=== PATIENT | male | born 1955 | race Caucasian/White ===

== ENCOUNTER 2018-10-08 08:32 | Inpatient (IN) ==
[2018-10-08] MEDS ORDERED: CeFAZolin Syr 2,000MG/20 ML 2,000 MG/20 ML SYRINGE IVPB ONE (08:56)
[2018-10-08] MEDS ORDERED: Ringers Solution, Lactated 1,000 ML IVC SCH (09:00)
--- NOTE | 2018-10-08 09:10 | Anesthesia Evaluation PreOp ---
Date of Encounter: 10/08/18 Time of Encounter: 09:15 - Past History Planned Operation: Laparoscopic Left Radical Nephrectomy Cardiac History: [place] (1988), HTN, Hyperlipidemia, Cardiac Stent (stent x 1 in 1999) Pulmonary History: Denies Any Significant HX, Snore [employer] History: Denies Any Significant HX Other Medical History: Denies Any Significant HX Anesthesia History: No Prior Anesthetic Complications, Past Anesthesia Alcohol Use: none Drug use: none Medications and Allergies Aspirin 325 mg PO DAILY 10/08/18 [History] Atenolol [Tenormin] 50 mg PO DAILY 10/08/18 [History] Atorvastatin [Lipitor] 40 mg PO HS 10/08/18 [History] Lisinopril [Zestril] 5 mg PO DAILY 10/08/18 [History] Allergy/AdvReac Type Severity Reaction Status Date / Time No Known Allergies Allergy Unverified 10/02/18 13:54 - Meds/Allergy Pre-op Review Medications Reviewed: Yes Allergies Reviewed: Yes Beta Blockers on Current Med List: Yes If Beta Blockers taken, Date/Time (Last Dose taken): 10/08/2018 at 0700 Anesthesia Results - Labs Laboratory Tests 08/07/17 10/02/18 10/02/18 17:41 14:00 14:00 WBC 7.2 Hgb 18.0 H Hct 52.8 H Plt Count 197 Sodium 137 Potassium 3.8 BUN 25 H Creatinine 1.08 - Imaging EKG: report reviewed (10/02/2018 SINUS BRADYCARDIA Inferior T changes, consider ischemia, correlate clinically) Anesthesia Exam O2 Sat Height 1.91 m Weight 103.419 kg O2 Sat by Pulse Oximetry 97 Vital Signs Temp Pulse Resp BP Pulse Ox 98.2 F 53 18 151/82 97 10/08/18 08:55 10/08/18 08:55 10/08/18 08:55 10/08/18 08:55 10/08/18 08:55 Height: 6'3'' Weight: 228 lbs NPO (# of Hours): 8 Pain Scale: 0 Pain Scale Used: Numeric (1 - 10) - HEENT Pupil (Motor): EOMI Mallampati: II Teeth: Normal Oral Opening: Greater than 3 - [employer] LOC: Oriented [employer] Motor: Normal RUE, Normal LUE, Normal RLE, Normal LLE, Normal Face [employer] Sensory: Normal: RUE, LUE, RLE, LLE, Face - Cardiac Rhythm: Regular Murmur: None - Pulmonary Breath Sounds: bilateral Clear Respiratory Effort: Symmetrical Anesthesia Assess/Plan ASA Score: 3 Level of consciousness: Cooperative, Oriented, Tranquil Anesthetic Plan: General Monitoring Plan: Standard Monitors Recovery Plan: PACU
[2018-10-08] MEDS ORDERED: Ondansetron 4 MG/2 ML VIAL IVP ONE (09:35)
[2018-10-08] MEDS ORDERED: *HR* HYDROmorphone (PF) 1 MG/ML SYRINGE IVP PRN (09:35)
[2018-10-08] MEDS ORDERED: *HR* OxyCODONE Immed Rel 5 MG TABLET PO PRN ×2 (09:35→16:21)
--- NOTE | 2018-10-08 09:59 | History & Physical Report ---
Date of Encounter: 10/08/18 Time of Encounter: 09:58 24 Hour HP Update - Instructions Instructions: If the History and Physical is less than 30 days old and was completed prior to A.M. admission and or procedure and has NOT been updated on calendar day of procedure please complete this update prior to performing procedure. - Update Patient reports changes in Medical Condition: No Changes in examination, assessment, or condition: No Changes in Medication: No Preop tests/diagnostics Reviewed: Yes Surgery Remains Indicated: Yes Consent for Planned Operative Procedure(s) Verified: Yes - Pre-Operative Checklist Preoperative Checklist Indicated: Yes Prophylactic Antibiotic Ordered: Yes Home Medications Include Beta Esteban: No Beta Esteban Taken Today (Day of Surgery): No Beta Esteban Taken Yesterday (Day Prior to Surgery): No Is VTE Prophylaxis Indicated?: Yes
[2018-10-08] MEDS ORDERED: *HR* Midazolam HCl 2 MG/2 ML VIAL ONE (10:26)
[2018-10-08] MEDS ORDERED: *HR* FentaNYL (PF) 100 MCG/2 ML VIAL ONE ×2 (10:26→14:40)
[2018-10-08] MEDS ORDERED: *HR* Propofol 200 MG/20 ML VIAL IVP ONE (10:26)
[2018-10-08] MEDS ORDERED: Heparin 1,000 UNITS/500 mL 500 ML ONE (10:39)
[2018-10-08] MEDS ORDERED: *HR* PHENYLEPHRINE 1,000 MCG/10 ML SYRINGE IVP ONE ×2 (10:43→12:37)
[2018-10-08] MEDS ORDERED: Ondansetron 4 MG/2 ML VIAL ONE (10:57)
[2018-10-08] MEDS ORDERED: Lidocaine -MPF 2% 2 ML VIAL ONE ×2 (10:57→13:38)
[2018-10-08] MEDS ORDERED: Dexamethasone 4 MG/ML VIAL ONE (10:57)
[2018-10-08] MEDS ORDERED: Bupivacaine-MPF 0.25% 10 ML VIAL ONE (11:53)
[2018-10-08] MEDS ORDERED: EPHEDrine 50 MG/ML VIAL ONE (12:38)
[2018-10-08] MEDS ORDERED: *HR* HYDROMORPHONE 2 MG/ML VIAL ONE (13:00)
[2018-10-08] MEDS ORDERED: *HR* Rocuronium Bromide 50 MG/5 ML VIAL ONE (13:12)
[2018-10-08] MEDS ORDERED: Neostigmine Methylsulfate 3 MG/3 ML SYRINGE ONE (14:26)
--- NOTE | 2018-10-08 15:42 | Operative Note ---
Date of procedure: 10/08/18 Pre-op diagnosis: 9 cm left renal mass Post-op diagnosis: same Procedure: left hand assist laparoscopic nephrectomy Anesthesia: GETA Surgeon: Mati Cervantes Was there an assistant surveyor present: Yes Business Systems Administrator: Milvia Rendon Estimated blood loss (cc): 250 Specimen: left kidney Condition: stable Disposition: PACU Procedure in Detail: Patient was taken back to the operating room positioned supine on the operating table. Anesthesia was applied without complication. Catheter was placed to return of clear urine. He is placed in a modified flank position. Gel rolls were used to support the patient's back and buttocks. Appropriate cushioning was used for patient safety. He was taped in place and safety belt was applied. Once he was prepped and draped sterile fashion timeout was performed to confirm the proper patient and procedure. Films were reviewed which did confirm a 9 cm left lower pole renal mass. I made a 7 cm incision just superior to his umbilicus and the dissection was carefully carried down with the electrocautery. I made a small incision in the fascia which was then widened with blunt dissection to accommodate my finger. I then opened the fascia over my finger using the cautery. The posterior peritoneum was encountered and I used a DeBakey and Metzenbaum scissors to enter the abdomen. The patient had some rectus diastases and I did not have to cut or split the muscle. Once the peritoneum was entered I placed a hand port and provided pneumoperitoneum. I inserted my left hand and confirm that there were no significant adhesions. I placed 2 12 mm ports one in the inferior abdomen just off the anterior superior iliac crest and a second in the midline above my hand port. Identified the descending colon and a Harmonic scalpel was used to reflect the colon at the white line of Toldt. The large lower pole tumor was evident. I continued to reflect the colon at the splenic flexure. This further exposed the retroperitoneum. I began a majority of my dissection near the inferior portion of the tumor. Gerotas fascia was dissected with the aid of the Harmonic. In this location and I did encounter a fairly significant parasitic vessel which bled 100- 150 mL prior to me controlling the bleeding using multiple 10 mm clips. I carried my dissection posteriorly with the Harmonic and blunt dissection to separate the kidney from the psoas muscle and lateral wall. There were some reactive attachments but no obvious tumor extension. I then identified the ureter which was clipped at the inferior component with 2 10 mm clips and then ligated using the Harmonic. The gonadal vein was identified and traced up to the level of the renal vein. I could palpate a large artery just superior to the renal vein which did course anterior. Reviewing the images I confirm that this was a branch of the renal artery and I was able to trace this back to the actual renal artery which was just posterior to the renal vein. After using careful blunt dissection and the Harmonic scalpel I was able to clear a space around the hilum and I ligated the renal vein on the renal side of the gonadal vein along with the renal artery using a articulating endovascular stapler with a vascular staple load. 6 additional endovascular staple loads were used to staple ligate the area above the hilum and adrenal tissue. The Harmonic was used to ligate some of the superior attachments of the kidney. Aft er the procedure the spleen appeared uninjured without hemorrhage. The kidney was completely free at this point. A large Endo Catch bag was placed through the inferior port site after removing the 12 mm port. I then passed the Endo Catch bag to the hand port site. I had to extend my incision approximately 2 cm to remove the specimen in the Endo Catch bag. Once the specimen was removed I reestablished pneumoperitoneum and examined by operative field. Numerous laps had been used during the procedure to help with retraction and these were all confirmed to be removed. My hilum and area inferior to the spleen appeared dry without significant bleeding. I did place a Surgicel and Floseal then reflected the colon back into position. The hand port site was closed with a running 0 PDS, Vicryl and then Monocryl for the skin. 12 mm ports were closed with Vicryl and Monocryl. Milvia Rendon assisted during the entire case and closed the incisions.
--- NOTE | 2018-10-08 15:53 | Anesthesia Evaluation Post Op ---
Date of Encounter: 10/08/18 Time of Encounter: 16:00 - Vital Signs Vital Signs: Vital Signs/O2 Sat/Glucose, Most Current Temp Pulse Resp BP Pulse Ox 10/08/18 15:44 97.5 F L 85 15 140/84 94 10/08/18 15:34 83 12 137/79 96 10/08/18 15:24 86 15 129/85 97 10/08/18 15:14 97.5 F L 73 16 134/75 97 - Lungs Lungs: Clear Ascult./Percussion - Airway Airway: Non-obstructed - Cardiovascular Regular Rate - Mental Status Mental Status: Alert & Oriented, Answers Appropriately - Pain Pain Scale: 0 - Nausea Vomiting Nausea Vomiting: Not Present - Hydration Hydration: Ice chips, Butts catheter - Discharge PostOp Status: Transfer Patient to floor
[2018-10-08] MEDS ORDERED: Naloxone 0.4 MG/ML INJ IVP PRN (16:21)
[2018-10-08] MEDS ORDERED: Ondansetron 4 MG/2 ML VIAL IVP PRN (16:21)
[2018-10-08] MEDS ORDERED: Acetaminophen 325 MG TABLET PO PRN (16:21)
[2018-10-08] MEDS ORDERED: *HR* HYDROcodone/Acet 5/325 mg TABLET PO PRN (16:21)
[2018-10-08] MEDS ORDERED: OXYCODONE Oral CONC 10 MG/0.5 ML ORAL.SYG SL PRN ×2 (16:21)
--- NOTE | 2018-10-08 17:02 | Event Note ---
Date of Encounter: 10/08/18 Time of Encounter: 17:01 pts pain controlled. looks good. vitals stable.
[2018-10-08] MEDS: 0.9 % Sodium Chloride 1,000 ML IVC SCH (17:15)
[2018-10-09] MEDS: 0.9 % Sodium Chloride 1,000 ML IVC SCH (05:40)
[2018-10-09] MEDS ORDERED: *HR* HYDROcodone/Acet 5/325 mg TABLET PO PRN (07:02)
[2018-10-09] MEDS ORDERED: Ondansetron 4 MG/2 ML VIAL IVP PRN (07:03)
--- NOTE | 2018-10-09 07:20 | Urology Progress Note ---
Date of Encounter: 10/09/18 Time of Encounter: 07:18 - Assessment and Plan (1) Renal mass Current Visit: Yes Status: Resolved Assessment and plan: labs pending. pt looks great. advance diet. ambulate. saline lock fluids. pt likely DC today. Progress Note Subjective: pain is less Narrative: feels ok. one episode nausea overnight. Objective Initial Vital Signs Temp Pulse Resp BP Pulse Ox 98.2 F 53 18 151/82 97 10/08/18 08:55 10/08/18 08:55 10/08/18 08:55 10/08/18 08:55 10/08/18 08:55 - General physical appearance Present: no distress - Additional Exam abd soft. no bruising. minimal pain. crespo clear. Consult Discharge Plan - Plan Referrals: Leslie Clayton, STUDIO ASSISTANT [Primary Care Provider] -
[2018-10-09 07:21] LABS: Basophils % 0.1 %; Hematocrit 48.4 % (37.5-50.1); Immature Granulocytes % 0.3 % (0-4); Lymphocytes # 0.6 K/mcL (0.6-4.6); Mean Corpuscular HGB Conc 33.5 g/dL (31.6-35.5); Mean Corpuscular Hemoglobin 29.7 pg (28.0-33.3); Mean Corpuscular Volume 88.8 fL (83.0-100.0); Mean Platelet Volume 10.4 fL (9.4-12.4); Monocytes # 0.9 K/mcL (0.0-1.3); Monocytes % 7.1 %; Neutrophils # 10.9 K/mcL (1.6-8.9); Platelet Count 160 K/mcL (140-400); Red Blood Count 5.45 M/mcL (4.19-5.50); Red Cell Distribution Width 13.5 % (11.5-14.5); Segmented Neutrophils % 87.5 %
[2018-10-09 07:27] LABS: Hemoglobin 16.2 g/dL (12.9-16.9)
[2018-10-09 07:40] LABS: Calcium 8.9 mg/dL (8.6-10.3); Potassium 3.7 mEq/L (3.5-5.1)
--- NOTE | 2018-10-09 09:18 | Discharge Summary ---
Orders not resulted at time of discharge: Pending orders 10/08/18 14:47 Surgical Pathology [PTH] Routine Date of Encounter: 10/09/18 Time of Encounter: 08:30 - Discharge Diagnosis (1) Renal mass Priority: Primary Status: Resolved - Hospital Course Hospital course: Mr. Goodwin is a 63 year old male who presents with a history of a left renal mass. On 10/08/2018, patient was taken to the operating room where he underwent left hand assist laparoscopic nephrectomy. There were no surgical complications, and the patient tolerated the procedure well. Postoperative course was relatively unremarkable, and he was dismissed in satisfactory condition. Postoperative expectations, restrictions, activity and follow-up were discussed with patient, and patient verbalized understanding. Time spent discussing smoking cessation with patient: 3 to 10 minutes - Time Spent with Patient Total time spent providing and/or coordinating discharge services: Less than 30 minutes Procedures and tests throughout hospitalization: left hand assist laparoscopic nephrectomy Labs on day of discharge: Labs from last 24 hours 10/09/18 10/09/18 06:25 06:25 WBC 12.4 H D RBC 5.45 Hgb 16.2 D Hct 48.4 MCV 88.8 MCH 29.7 MCHC 33.5 RDW 13.5 Plt Count 160 MPV 10.4 Immature Gran % 0.3 Seg Neutrophils % 87.5 Lymphocytes % 5.0 Monocytes % 7.1 Eosinophils % 0.0 Basophils % 0.1 Neutrophils # 10.9 H Lymphocytes # 0.6 Monocytes # 0.9 Eosinophils # 0.0 Basophils # 0.0 Sodium 140 Potassium 3.7 Chloride 102 Carbon Dioxide 23 BUN 22 Creatinine 1.71 H Est GFR ( Amer) 49 L Est GFR (Non-Af Amer) 41 L BUN/Creatinine Ratio 13 Glucose 120 H Calculated Osmolality 295 Calcium 8.9 - Discharge Medications Prescriptions: New HYDROcodone/Acet 5/325 mg [[place] 5-325 mg] 1 tab PO Q6H PRN 3 Days #12 tab PRN Reason: Pain Continued Aspirin 325 mg PO DAILY Lisinopril [Zestril] 5 mg PO DAILY Atenolol [Tenormin] 50 mg PO DAILY Atorvastatin [Lipitor] 40 mg PO HS Home Medications: Aspirin 325 mg PO DAILY 10/08/18 [History] Atenolol [Tenormin] 50 mg PO DAILY 10/08/18 [History] Atorvastatin [Lipitor] 40 mg PO HS 10/08/18 [History] Lisinopril [Zestril] 5 mg PO DAILY 10/08/18 [History] HYDROcodone/Acet 5/325 mg [[place] 5-325 mg] 1 tab PO Q6H PRN 3 Days #12 tab 10/09/18 [Rx] Allergies/Adverse Reactions: Allergy/AdvReac Type Severity Reaction Status Date / Time No Known Allergies Allergy Unverified 10/02/18 13:54 Date of admission: 10/08/18 16:48 Primary care physician: Leslie Clayton CNP Discharging clinician: Milvia Rendon Anticipated date of discharge: 10/09/18 Exam Initial Vital Signs Temp Pulse Resp BP Pulse Ox 98.2 F 53 18 151/82 97 10/08/18 08:55 10/08/18 08:55 10/08/18 08:55 10/08/18 08:55 10/08/18 08:55 - General physical appearance Present: well developed, no distress, no pain - Eyes Present: PERRL, normal ocular movement, conjunctiva is clear - ENT Present: normal nares, no hearing loss, no congestion - Neck Present: no masses, trachea midline, no lymphadenopathy - Respiratory Present: normal respiratory effort - Cardiovascular Cardiovascular exam IM: RRR - Abdomen Abdomen: Present: soft, non tender, wound (Primary incisions clean, dry, intact) - Genitourinary other (Urine is transparent, clear yellow; Butts catheter removed) - Integumentary Present: no rash, no abnormal pigmentation - Neurologic Present: normal coordination - Musculoskeletal Present: other (normal posture ) - Patient Status Disposition: Home, Self-Care Condition: Good Functional capacity at discharge: independent ambulation Overall status at discharge: patient is progressing back to baseline - Discharge Instructions Follow Up With: Leslie Clayton CNP [Primary Care Provider] - Mati Cervantes MD [Partnered Physician] - 10/25/18 9:30 am Additional Instructions: Call if fever greater than 101 degrees. Call if incision sites are red, warm, or begin to drain excessively. Okay to shower. No tub baths, swimming, or hot tubs. No lifting greater than 20 pounds or heavy activity. Okay to drive as long as you are no longer taking narcotic pain medicine. Okay to use [id number] stool softeners twice daily. - Diet and Activity Activity: increase activity as tolerated Diet: advance to your usual diet
[2018-10-09 11:14] VITALS: BP 142/77
== END 2018-10-09 13:33 | disposition home or self-care (01) | DRG 658 ==
LOC: SAMDAY 08:32 → 3ANU 16:48
PROVIDERS: ADMIT Urology; ATTEND Urology